=== PATIENT | female | born 1995 | race Caucasian/White ===

== ENCOUNTER → 2017-02-05 17:07 | Emergency (ER) | payer BC ==
[~2017-02-05 17:07] MED LIST: Ibuprofen TAB* 600 MG PO ONE
[2017-02-05 17:18] VITALS: BP 109/72
--- NOTE | 2017-02-06 17:35 | ED ---
Miracle Rascon Edward, scribed for Eamon Lowe MD on 02/05/17 at 1746 . Head Injury - HPI Summary HPI Summary: 22 y/o female presents to the ED c/o gradual onset ALTAMIRANO worsening in the past hours s/p head injury yesterday. Yesterday the pt hit the back of her head on the metal corner of a locker. The pt hit her R forehead. There was immediate pain. The pt developed ecchymosis and edema at the site of injury. Today the pt developed a ALTAMIRANO that has worsened in the past few hours. Pt denies N/V. - History Of Current Complaint Chief Complaint: EDHeadInjury Stated Complaint: POSS CONCUSSION/HEAD INJURY Time Seen by Provider: 02/05/17 17:28 Mechanism Of Injury: Other - pinpoint trauma Onset/Duration: Started Hours Ago - yesterday, Still Present Onset of Pain: Immediate, Post Accident Severity Initially: Moderate Pain Intensity: 4 Pain Scale Used: 0-10 Numeric Location of Head Injury: Temporal Location: Discrete At: Associated Signs And Symptoms: Swelling, Bruising, Headache - Allergies/Home Medications Allergies/Adverse Reactions: Allergies Allergy/AdvReac Type Severity Reaction Status Date / Time No Known Allergies Allergy Verified 02/05/17 17:17 PMH/Surg Hx/FS Hx/Imm Hx Previously Healthy: Yes Endocrine/Hematology History: Denies: Hx Diabetes Infectious Disease History: No Infectious Disease History: Denies: Traveled Outside the [place] in Last 30 Days - Social History Occupation: Student Alcohol Use: None Hx Substance Use: No Substance Use Type: Reports: None Review of Systems Constitutional: Negative Eyes: Negative ENT: Negative Cardiovascular: Negative Respiratory: Negative Gastrointestinal: Negative Genitourinary: Negative Positive: Edema Positive: Bruising Positive: Headache Psychological: Normal All Other Systems Reviewed And Are Negative: Yes Physical Exam - Summary Physical Exam Summary: VITAL SIGNS: Reviewed. GENERAL: ~Patient is a well-developed and nourished female who is lying comfortable in the stretcher. ~Patient is not in any acute respiratory distress. HEAD AND FACE: No signs of trauma. ~No ecchymosis, hematomas or skull depressions. No sinus tenderness. There is a 3 mm area of erythema @ R temporal area with reproducible pain for the pt. EYES: PERRLA, EOMI x 2, No injected conjunctiva, no nystagmus. No photophobia. EARS: Hearing grossly intact. Ear canals and tympanic membranes are within normal limits. MOUTH: Oropharynx within normal limits. NECK: Supple, trachea is midline, no adenopathy, no JVD, no carotid bruit, no c- spine tenderness, neck with full ROM. No meningeal signs, no Kernig's or brudzinskis signs. CHEST: Symmetric, no tenderness at palpation LUNGS: Clear to auscultation bilaterally. No wheezing or crackles. CVS: Regular rate and rhythm, S1 and S2 present, no murmurs or gallops appreciated. ABDOMEN: Soft, non-tender. No signs of distention. No rebound no guarding, and no masses palpated. Bowel sounds are normal. EXTREMITIES: FROM in all major joints, no edema, no cyanosis or clubbing. NEURO: Alert and oriented x 3. No acute neurological deficits. Speech is normal and follows commands. SKIN: Dry and warm GCS: 15 Triage Information Reviewed: Yes Vital Signs On Initial Exam: Initial Vitals Temp Pulse Resp BP Pulse Ox 98.1 F 80 16 109/72 100 02/05/17 17:14 02/05/17 17:14 02/05/17 17:14 02/05/17 17:14 02/05/17 17:14 Vital Signs Reviewed: Yes - Marion Coma Scale Coma Scale Total: 15 Diagnostics - Vital Signs Vital Signs Temp Pulse Resp BP Pulse Ox 02/05/17 17:14 98.1 F 80 16 109/72 100 - Laboratory Lab Statement: Any lab studies that have been ordered have been reviewed, and results considered in the medical decision making process. Head Injury Course/Dx Assessment/Plan: 22 y/o female presents to the ED c/o gradual onset ALTAMIRANO worsening in the past hours s/p head injury yesterday. Yesterday the pt hit the back of her head on the metal corner of a locker. The pt hit her R forehead. There was immediate pain. The pt developed ecchymosis and edema at the site of injury. Today the pt developed a ALTAMIRANO that has worsened in the past few hours. Pt denies N/V. The patient has a pinpoint contusion of head yesterday. Denies nausea, dizziness, feelings of passing out or blurred vision. Neurological exam intact; the pt does not need head CT. GCS 15. Pt was given ibuprofen in ED and pt was advised to return if she develops lethargy, increase in ALTAMIRANO blurred vision or neurological deficits. Pt will go home with her roommate and will be cared for by the roommate for the next 12 hours. Pt is hemodynamically stable and A&Ox3. - Diagnoses Differential Diagnosis/HQI/PQRI: Concussion Without LOC, Contusion Provider Diagnoses: Head contusion Discharge - Discharge Plan Condition: Stable Disposition: HOME Patient Education Materials: Head Injury (ED), Contusion in Adults (ED) Referrals: [facility] [place] [facility] [Outside] The documentation as recorded by the Miracle daniels Edward accurately reflects the service I personally performed and the decisions made by , Eamon Lowe MD.
== END | disposition home or self-care (01) ==
LOC: ED 17:07
DX: S00.93XA Contusion of unspecified part of head, initial encounter (principal); R51 Headache; W22.8XXA Striking against or struck by other objects, initial encounter; Y93.9 Activity, unspecified; Y92.9 Unspecified place or not applicable
CPT/HCPCS: 99282; A9270-GY